=== PATIENT | female | born 1980 | race Caucasian/White ===

== ENCOUNTER 2017-04-03 20:21 | Emergency (ER) | payer OTHER ==
[~2017-04-03] VITALS: Ht 157.5 cm; Wt 58.1 kg
[~2017-04-03 20:21] MED LIST: TYLENOL #21 EA ORAL
[2017-04-03] MEDS ORDERED: IBUPROFEN600 MG ORAL (21:22)
[2017-04-03 21:30] VITALS: BP 114/75
--- NOTE | 2017-04-04 13:02 | Diagnostic Imaging Report ---
Indication: PAIN Technique: 3 views right foot Comparison: none Findings: There is hallux valgus and bunion formation. No acute fractures. No dislocations. Soft tissue prominence over the medial first metatarsal head is probably related bunion, but process such as gouty tophus cannot be excluded. There is questionably a small osseous erosion deep to this. Impression: Hallux valgus and bunion formation. Small erosion of the first metatarsal head, probably degenerative in nature but the possibility of overlying gouty tophus should be considered No acute bony trauma
--- NOTE | 2017-04-05 08:13 | Emergency Room Report ---
History of Present Illness General Chief Complaint: Lower Extremity Injury Source: Patient Present Illness HPI 36-year-old female presents to ED complaining of toe pain. States this morning she bumped her foot into a door frame. Notes bruising to the right fifth toe. Denies any pain at this time. Notes pain initially. Notes bruising and swelling. Denies any other injuries. No other aggravating relieving factors. Denies any other associated symptoms Allergies: Coded Allergies: No Known Allergies (Unverified , 11/23/15) Patient History Past Medical History: none Past Surgical History: none Pertinent Family History: none Social History: Denies: alcohol use, drug use, smoking Last Menstrual Period: unk Now: No Immunizations: UTD Reviewed Nursing Documentation: PMH: Agreed, PSxH: Agreed Nursing Documentation-PMH Past Medical History: No Stated History Review of Systems All Other Systems: negative except mentioned in HPI Physical Exam Vital Signs Date Time Temp Pulse Resp B/P Pulse Ox O2 Delivery O2 Flow Rate FiO2 04/03/17 20:30 98.1 90 16 114/75 100 Room Air Sp02 EP Interpretation: reviewed, normal General Appearance: no apparent distress, alert, GCS 15, non-toxic Head: normocephalic, atraumatic Eyes: bilateral eye PERRL, bilateral eye normal inspection ENT: hearing grossly normal, normal pharynx, no angioedema, normal voice Neck: full range of motion, supple/symm/no masses Respiratory: chest non-tender, lungs clear, normal breath sounds, speaking full sentences Cardiovascular #1: regular rate, rhythm, no edema Cardiovascular #2: 2+ carotid (R), 2+ carotid (L), 2+ radial (R), 2+ radial (L) , 2+ dorsalis pedis (R), 2+ dorsalis pedis (L) Gastrointestinal: normal bowel sounds, non tender, soft, non-distended, no guarding, no rebound Rectal: deferred Genitourinary: normal inspection, no CVA tenderness Musculoskeletal: back normal, gait/station normal, normal range of motion, tender - R 5th toe Neurologic: alert, oriented x3, responsive, motor strength/tone normal, sensory intact, speech normal Psychiatric: judgement/insight normal, memory normal, mood/affect normal, no suicidal/homicidal ideation Reflexes: 3+ bicep (R), 3+ bicep (L), 3+ tricep (R), 3+ tricep (L), 3+ knee (R) , 3+ knee (L) Skin: normal color, no rash, warm/dry, well hydrated, other - bruising to R 5th toe Lymphatic: no adenopathy Procedures Splinting Splinting : Consent: Verbal Pre-Made Type: REX wrap - R foot Pre-Proc Neuro Vasc Exam: normal Post-Proc Neuro Vasc Exam: normal Patient Tolerated: Well Complications: None Medical Decision Making Diagnostic Impression: Primary Impression: Toe contusion Qualified Codes: S90.121A - Contusion of right lesser toe(s) without damage to nail, initial encounter ER Course Hospital Course 36-year-old F presents to ED complaining of R 5th toe pain s/p hit door frame Differential diagnoses include: Fracture, dislocation, sprain, contusion Clinical course Patient placed on stretcher. After initial history and physical, I ordered Xrays of R foot. patient declined pain meds Xrays prelim read shows no acute fracture/dislocation. placed in rex wrap Diagnosis - toe contusion Stable and discharged to home with prescription for Motrin. apply ice, keep elevated. weight bear as tolerated. Followup with PMD. Return to ED if symptoms recur or worsen Chest X-Ray Diagnostic Results Chest X-Ray Ordered: No Other X-Ray Diagnostic Results # of Views/Limited Vs Complete: 3 View Interpretation: no fractures, no dislocation, no soft tissue swelling Indication: Pain Impression: No acute disease Date Electronically Signed: Apr 03, 2017 Time Electronically Signed: 21:00 Electronically Signed by: Navid Capellan Last Vital Signs Date Time Temp Pulse Resp B/P Pulse Ox O2 Delivery O2 Flow Rate FiO2 04/03/17 21:30 98.1 16 114/75 100 Room Air 04/03/17 20:30 90 Status: improved Disposition: HOME, SELF-CARE Condition: Stable Scripts Ibuprofen* (MOTRIN*) 600 Mg Tablet 600 MG ORAL Q8H Y for For Pain, #30 TAB 0 Refills Prov: NAVID CAPELLAN M.D. 04/03/17 Patient Instructions: Foot Contusion NAVID CAPELLAN M.D. Apr 05, 2017 08:13
== END 2017-04-03 21:30 | disposition home or self-care (01) ==
LOC: EMR 20:57
DX: S90.121A Contusion of right lesser toe(s) without damage to nail, initial encounter (principal); W22.8XXA Striking against or struck by other objects, initial encounter; Y92.89 Other specified places as the place of occurrence of the external cause
CPT/HCPCS: 29540; 99283

== ENCOUNTER 2017-06-04 16:04 | Emergency (ER) | payer OTHER ==
[~2017-06-04] VITALS: Ht 157.5 cm; Wt 59.0 kg
[~2017-06-04 16:04] MED LIST changes: +IBUPROFEN600 MG ORAL
--- NOTE | 2017-06-04 16:51 | Emergency Room Report ---
History of Present Illness General Chief Complaint: Pain Source: Patient Present Illness HPI 36 yo M F with no sig pmhx p/w L sided shoulder/rib pain for 2 days. Pt states she had cough x 1 week. Pain localized to L shoulder and under L ribs, no radiation to back or other areas, sharp in nature, gradual in onset, worsened with taking deep inspiration. not worsened on exertion. no sob. Denies palpitations, diaphoresis, n/v. This is the first occurrence of pain. Denies fever, chills, abd pain. Denies trauma. Denies cardiac history, smoking, or family history of cardiac disease at a young age. Denies history of PE/DVT, no recent surgeries, prolonged immobilization, malignancy, or use of OCPs/HRT. Allergies: Coded Allergies: No Known Allergies (Unverified , 11/23/15) Patient History Past Medical History: none Past Surgical History: none Last Menstrual Period: 06/02/17 - Nursing & IUD Now: No Nursing Documentation-PMH Past Medical History: No History, Except For Review of Systems Cardiovascular: Reports: chest pain Musculoskeletal: Reports: joint pain All Other Systems: negative except mentioned in HPI Physical Exam Vital Signs Date Time Temp Pulse Resp B/P Pulse Ox O2 Delivery O2 Flow Rate FiO2 06/04/17 16:07 98.2 77 14 124/84 100 Room Air General Appearance: normal inspection, well appearing, no apparent distress, alert, GCS 15, non-toxic Head: normocephalic, atraumatic Eyes: bilateral eye EOMI, bilateral eye PERRL, bilateral eye normal inspection ENT: normal ENT inspection, normal pharynx, normal voice, moist mucus membranes Neck: normal inspection, full range of motion, supple, no bony tend Respiratory: normal inspection, lungs clear, normal breath sounds, no respiratory distress, no retraction, no wheezing, speaking full sentences, chest symmetrical Cardiovascular #1: normal inspection, regular rate, rhythm, no edema, normal capillary refill Gastrointestinal: normal inspection, non tender, soft, non-distended, no guarding Musculoskeletal: normal inspection, back normal, normal range of motion, other - TTP deltoid region, FROM L shoulder, TTP under L ribs lateral aspect, no gross bony deformities Neurologic: normal inspection, alert, oriented x3, responsive, motor strength/ tone normal, sensory intact, normal gait, speech normal Medical Decision Making Diagnostic Impression: Primary Impression: Left shoulder pain Additional Impressions: Rib pain on left side Cough ER Course 36 yo M F with no sig pmhx p/w L sided rib/shoulder pain Plan: musculoskeletal CP/costochondritis given hx of cough vs. pneumothorax vs. gastritis/GERD PE less likely given history and physical examination, not hypoxic/tachycardic, no risk factors, PERC negative. ACS less likely given age/history Plan: NSAIDs, EKG, CXR Anticipate DC home as patient appears clinically well. ER course: Patient was treated NSAIDs with improvement of pain. EKG and CXR unremarkable. Patient remains well appearing in ED. Disposition: Patient will be discharged to home with a prescription of motrin. Strict precautions discussed with patient on when to emergently return to the ED : this includes worsening/severe chest pain, palpitations, shortness of breath, syncopal episodes, fever or chills, which may indicate severe illness. Patient verbalized understanding. Patient instructed to follow up with their PMD within the next 2 days. Patient agrees with plan. EKG Diagnostic Results Rate: normal Rhythm: NSR ST Segments: no acute changes Chest X-Ray Diagnostic Results Chest X-Ray Diagnostic Results : Chest X-Ray Ordered: Yes # of Views/Limited/Complete: 2 View Indication: Chest Pain EP Interpretation: Yes Interpretation: no consolidation, no effusion, no pneumothorax, no acute cardiopulmonary disease Impression: No acute disease Interpreting ER Provider: electronically signed by Mitzy Rich MD Last Vital Signs Date Time Temp Pulse Resp B/P Pulse Ox O2 Delivery O2 Flow Rate FiO2 06/04/17 16:07 98.2 77 14 124/84 100 Room Air Disposition: HOME, SELF-CARE Condition: Improved Patient Instructions: Nonspecific Chest Pain Mitzy Rich M.D. Jun 04, 2017 16:51
[2017-06-04 17:16] VITALS: BP 124/84
[2017-06-04 17:50] VITALS: BP 124/84
--- NOTE | 2017-06-05 12:40 | Diagnostic Imaging Report ---
Indication: Dyspnea Comparison: None 2 views of the chest obtained. Findings: Cardiomediastinal silhouette and pulmonary vascularity are within normal limits for age. The diaphragmatic contour is smooth and costophrenic angles are sharp. No pleural effusions are identified. The bones are unremarkable. Impression: No acute disease
== END 2017-06-04 17:50 | disposition home or self-care (01) ==
LOC: EMR 16:35
DX: M25.512 Pain in left shoulder (principal); R07.81 Pleurodynia; R05 Cough
CPT/HCPCS: 71020; 81025; 93005; 99283

== ENCOUNTER 2020-08-23 12:31 | Emergency (ER) | payer MEDICAID, OTHER ==
[~2020-08-23] VITALS: Ht 157.5 cm; Wt 59.0 kg
--- NOTE | 2020-08-23 13:14 | Emergency Room Report ---
History of Present Illness General Chief Complaint: Lower Extremity Injury Source: Patient Present Illness HPI 40-year-old female with no significant past medical history here complaining of 5 days of left third and fourth toe pain and bruising noted to the affected area. Reports that the pain started after her daughter jumped on her foot 5 days ago. Has not taken medication for pain. Denies any tingling or numbness, has full range of motion, rates the pain 5 out of 10 at this time. Reports that the pain is worse when walking. Denies all other injuries. Denies . Patient is neurovascularly intact. Allergies: Coded Allergies: No Known Allergies (Unverified , 11/23/15) COVID-19 Screening Contact w/high risk pt: No Experienced COVID-19 symptoms?: No COVID-19 Testing performed COMPLAINT COORDINATOR: No Patient History Past Medical History: see triage record Past Surgical History: none Pertinent Family History: none Last Menstrual Period: on control Now: No Immunizations: UTD Reviewed Nursing Documentation: PMH: Agreed; PSxH: Agreed Review of Systems All Other Systems: negative except mentioned in HPI Physical Exam Vital Signs Date Time Temp Pulse Resp B/P (MAP) Pulse Ox O2 Delivery O2 Flow Rate FiO2 08/23/20 12:38 98.4 83 16 116/66 (83) 95 Room Air Sp02 EP Interpretation: reviewed, normal General Appearance: no apparent distress, alert, GCS 15, non-toxic Head: normocephalic, atraumatic Eyes: bilateral eye normal inspection, bilateral eye PERRL ENT: hearing grossly normal, normal pharynx, no angioedema, normal voice Neck: full range of motion, supple/symm/no masses Respiratory: chest non-tender, lungs clear, normal breath sounds, speaking full sentences Cardiovascular #1: regular rate, rhythm, no edema Cardiovascular #2: 2+ dorsalis pedis (R), 2+ dorsalis pedis (L) Gastrointestinal: normal bowel sounds, non tender, soft, non-distended, no guarding, no rebound Rectal: deferred Musculoskeletal: back normal, no calf tenderness, pelvis stable, tender - Left third and fourth toe Neurologic: alert, motor strength/tone normal, oriented x3, sensory intact, responsive, speech normal Psychiatric: judgement/insight normal, memory normal, mood/affect normal, no suicidal/homicidal ideation Skin: no rash Lymphatic: no adenopathy Procedures Splinting Splinting : Consent: Verbal Location: Left foot Pre-Made Type: Syed tape and postop shoe Pre-Proc Neuro Vasc Exam: normal Post-Proc Neuro Vasc Exam: normal Patient Tolerated: Well Complications: None Medical Decision Making PA Attestation All my diagnosis and treatment plans were reviewed ad discussed with my supervising physician Dr. Capellan Diagnostic Impression: Primary Impression: Crushing injury of foot Additional Impression: Toe sprain ER Course 40-year-old female with no significant past medical history here complaining of 5 days of left third and fourth toe pain and bruising noted to the affected area. Reports that the pain started after her daughter jumped on her foot 5 days ago. Has not taken medication for pain. Denies any tingling or numbness, has full range of motion, rates the pain 5 out of 10 at this time. Reports that the pain is worse when walking. Denies all other injuries. Denies . Patient is neurovascularly intact. Ddx considered but are not limited to: foot fracture, foot sprain, foot contusion, foot strain Vital signs: are WNL, pt. is afebrile H&PE are most consistent with: Crushing injury of foot, toes. ORDERS: foot Xray motrin ED INTERVENTIONS: Syed tape and postop shoe DISCHARGE: At this time pt. is stable for d/c to home. Will provide printed patient care instructions, and any necessary prescriptions. Care plan and follow up instructions have been discussed with the patient prior to discharge. Take medication as directed, follow with orthopedist, emergency room Other X-Ray Diagnostic Results Other X-Ray Diagnostic Results : X-Ray ordered: left foot # of Views/Limited Vs Complete: 3 View Indication: Pain EP Interpretation: Yes PA Xray: Interpretation reviewed, by supervising MD, and agrees with findings. Interpretation: no dislocation, no soft tissue swelling, no fractures Impression: No acute disease Electronically Signed by: Gissell Rushing PA-C Last Vital Signs Date Time Temp Pulse Resp B/P (MAP) Pulse Ox O2 Delivery O2 Flow Rate FiO2 08/23/20 12:38 98.4 83 16 116/66 (83) 95 Room Air Disposition: HOME, SELF-CARE Condition: Stable Scripts Ibuprofen* (MOTRIN*) 600 Mg Tablet 600 MG ORAL Q8H PRN for FOR PAIN, #30 TAB 0 Refills Prov: Gissell Roche 08/23/20 Patient Instructions: Crush Injury, Fingers or Toes, [id number] Additional Instructions: Take medication as directed, follow-up with your primary care provider, if worsening symptoms return to the emergency room Gissell Roche Aug 23, 2020 13:14
[2020-08-23] MEDS ORDERED: IBUPROFEN600 M1 ORAL (13:16)
[2020-08-23 13:30] VITALS: BP 116/66
--- NOTE | 2020-08-23 15:53 | Diagnostic Imaging Report ---
Indication: Trauma to the third digit Technique: 3 views left foot Comparison: none Findings: No acute fracture. No dislocation. The joint spaces are preserved. Impression: Negative
== END 2020-08-23 13:30 | disposition home or self-care (01) ==
LOC: EMR 13:06
DX: S97.122A Crushing injury of left lesser toe(s), initial encounter (principal); S93.509A Unspecified sprain of unspecified toe(s), initial encounter; W51.XXXA Accidental striking against or bumped into by another person, initial encounter; Y92.9 Unspecified place or not applicable
CPT/HCPCS: 73630; Z7502; 99283